=== PATIENT | female | born 1960 | race Caucasian/White ===

== ENCOUNTER 2017-05-18 19:40 | Emergency (ER) | payer OTHER ==
[~2017-05-18] VITALS: Ht 149.9 cm; Wt 132.4 kg
[~2017-05-18 19:40] MED LIST: BENAZEPRIL HCL/1 TAB PO; GLIPIZIDE10 MG PO; LANTUS100 U/ML SC; LOTENSIN10 MG PO; METFORMIN HCL1000 MG PO; SIMVASTATIN20 M1 PO
[2017-05-18 20:59] LABS: BASOPHIL % 0.5 % (0-2); PLATELET COUNT 224 x10^3mcL (130-400); RED CELL DISTRIBUTION WIDTH 14.2 % (11.5-14.5)
[2017-05-18 21:05] LABS: CALCIUM 8.7 mg/dL (8.5-10.1); CARBON DIOXIDE 29.5 mmol/L (21-32); CHLORIDE SERUM 100 mmol/L (98-107); CREATININE SERUM 0.8 mg/dL (0.6-1.0); GFR1 > 60 mL/min; GLUCOSE SERUM 443 mg/dL (74-106); POTASSIUM SERUM 3.9 mmol/L (3.5-5.1); SODIUM SERUM 136 mmol/L (136-145)
[2017-05-18 21:09] LABS: ALKALINE PHOSPHATASE 120 U/L (46-116); ALT/SGPT 51 U/L (14-59); AMYLASE 36 U/L (25-115); AST/SGOT 34 U/L (15-37); BILIRUBIN TOTAL 0.3 mg/dL (0.20-1.00); LIPASE 174 IU/L (73-393); TOTAL PROTEIN, SERUM 7.5 g/dL (6.4-8.2)
[2017-05-18 23:05] VITALS: BP 136/65
== END 2017-05-18 23:05 | disposition home or self-care (01) ==
LOC: ED 19:40
PROVIDERS: Emergency Medicine
DX: R10.12 Left upper quadrant pain (principal); I10 Essential (primary) hypertension; E11.9 Type 2 diabetes mellitus without complications; E78.00 Pure hypercholesterolemia, unspecified; Z79.899 Other long term (current) drug therapy
CPT/HCPCS: 36415; 83880; J0780; J1815; J1885

== ENCOUNTER 2018-01-25 08:49 | Emergency (ER) | payer OTHER ==
[~2018-01-25] VITALS: Ht 149.9 cm; Wt 139.3 kg
[2018-01-25 09:05] VITALS: Ht 149.9 cm; Wt 139.3 kg
[2018-01-25 11:41] VITALS: BP 126/63
== END 2018-01-25 11:41 | disposition home or self-care (01) ==
LOC: ED 08:49
DX: M54.32 Sciatica, left side (principal); E66.9 Obesity, unspecified; I10 Essential (primary) hypertension; E11.9 Type 2 diabetes mellitus without complications; E78.00 Pure hypercholesterolemia, unspecified; Z68.44 Body mass index [BMI] 60.0-69.9, adult
CPT/HCPCS: J1885